=== PATIENT | female | born 1990 | race Caucasian/White ===

== ENCOUNTER 2020-11-28 13:53 | Outpatient (REF) | payer MEDICAID, SELFPAY ==
--- NOTE | ~2020-11-28 | US_ITS ---
EXAMINATION: US RETROPERITONEAL LIMITED (RENAL ONLY) CLINICAL INFORMATION: Frequency of micturition, kidney stones. COMPARISON: None TECHNIQUE: Real-time imaging of the kidneys. FINDINGS: RIGHT KIDNEY: 10.9 x 4.1 x 5.4 cm (SAG x AP x TRV). The kidney is normal in size, contour, and echogenicity. Renal cortical thickness is normal. No focal parenchymal lesions or hydronephrosis. There are small echogenic stones in the lower pole measuring 0.3 x 0.3 x 0.3 cm and mid pole measuring 0.2 x 0.3 x 0.2 cm. LEFT KIDNEY: 10.4 x 4.6 x 4.9 cm (SAG x AP x TRV). The kidney is normal in size, contour, and echogenicity. Renal cortical thickness is normal. No focal parenchymal lesions or hydronephrosis. There are several echogenic stones. The upper pole stone measures 0.3 x 0.3 x 0.3 cm. A mid pole stone measures 0.7 x 0.4 x 0.4 cm. A lower pole echogenic stone measures 0.2 x 0.2 x 0.2 cm. US/US renal BI IMPRESSION: Bilateral echogenic stones without caliectasis or hydronephrosis.
== END 2020-11-28 13:54 | disposition home or self-care (01) ==
LOC: HO.HMGCX 13:53
PROVIDERS: PCP Internal Medicine; Visit Provider Internal Medicine
DX: R35.0 Frequency of micturition (principal)
CPT/HCPCS: 76775

== ENCOUNTER 2022-10-28 17:50 | Outpatient (REF) | payer MEDICAID, SELFPAY ==
[2022-10-28 18:49] LABS: Influenza A PCR NEGATIVE (Negative); Influenza B PCR NEGATIVE (Negative); Resp Syncy Virus RNA Qual PCR NEGATIVE (Negative); SARS COV2 PCR INHOUSE NEGATIVE (Negative)
== END 2022-10-28 17:51 | disposition home or self-care (01) ==
LOC: HO.HHCLNP 17:50
PROVIDERS: Visit Provider Internal Medicine
DX: Z20.822 Contact with and (suspected) exposure to COVID-19 (principal); J06.9 Acute upper respiratory infection, unspecified; R39.9 Unspecified symptoms and signs involving the genitourinary system
CPT/HCPCS: 0241U; 87086; 87088; 87186

== ENCOUNTER 2022-11-21 14:07 | Outpatient (REF) | payer MEDICAID, SELFPAY ==
[2022-11-21 16:28] LABS: MANUAL DIFF FLAG NO
[2022-11-21 16:41] LABS: Basophils Absolute Auto 0.1 X10*3/uL (0.0-0.2); Basophils Percent Auto 0.9 % (0-2); Eosinophils Absolute Auto 0.1 X10*3/uL (0.0-0.4); Eosinophils Percent Auto 1.1 % (0-4); Hematocrit 37.7 % (37.0-47.0); Hemoglobin 12.5 g/dl (12.0-16.0); Imm Gran Abs Auto 0.01 X10*3/uL (0.00-0.03); Imm Gran Pct Auto 0.2 % (0.0-0.4); Lymphocytes Absolute Auto 1.6 X10*3/uL (1.2-4.9); Lymphocytes Percent Auto 28.1 % (20-40); Mean Corpuscular HGB Conc 33.2 g/dl (31.0-35.0); Mean Corpuscular Hemoglobin 30.6 pg (27.0-33.0); Mean Corpuscular Volume 92.4 fL (80.0-98.0); Mean Platelet Volume 11.2 fL (9.4-12.3); Monocytes Absolute Auto 0.5 X10*3/uL (0.1-1.2); Monocytes Percent Auto 8.1 % (2-11); Neutrophils Absolute Auto 3.4 x10*3/uL (2.0-8.3); Neutrophils Percent Auto 61.6 % (45-73); Platelet Count 239 X10*3/uL (160-400); Red Blood Count 4.08 X10*6/uL (4.20-5.50); Red Cell Distribution Width 12.2 % (11.0-16.0); White Blood Count 5.6 X10*3/uL (4.8-10.8)
[2022-11-21 16:52] LABS: Estimated Average Glucose 100 mg/dL; Hemoglobin A1c % 5.1 % (<6.0)
[2022-11-21 17:20] LABS: Anion Gap 13 (12-20); Blood Urea Nitrogen 10 mg/dL (9-16); Calcium 9.5 mg/dL (8.4-10.2); Carbon Dioxide 24 mmol/L (22-29); Chloride 106 mmol/L (96-108); Cholesterol 231 mg/dL (<200); Estimated Glomerular Filt Rate > 60; Glucose Random 84 mg/dL (60-115); HDL Cholesterol 34 mg/dL (>40); LDL Cholesterol Calculated 129 mg/dL (<100); Potassium 4.2 mmol/L (3.3-5.1); Sodium 139 mmol/L (135-145); Triglycerides 342 mg/dL (<150)
[2022-11-22 04:15] LABS: HIV AB/AG Nonreactive (Nonreactive); HIV Num 1 0.05 S/CO (0.00-0.99); ~HepC Num1 0.05 S/CO (0.00-0.79); ~Hepatitis C Antibody Nonreactive (Nonreactive)
== END 2022-11-21 14:08 | disposition home or self-care (01) ==
LOC: HO.HHCL 14:07
PROVIDERS: Visit Provider Internal Medicine
DX: Z00.00 Encounter for general adult medical examination without abnormal findings (principal)
CPT/HCPCS: 36415; 80048; 80061; 83036; 85025; 86803; 87389

== ENCOUNTER 2023-02-27 17:27 | Outpatient (REF) | payer MEDICAID, SELFPAY ==
[2023-02-27 17:49] LABS: Appearance Urine Cloudy; Color Urine Yellow; Glucose Urine UA Negative (Negative); Leukocyte Esterase Urine Negative (Negative); Nitrite Urine Positive (Negative); PH 6.5 (5.0-9.0); Specific Gravity - Urine 1.025 (1.005-1.025); UMIC TRIGGER UACC YES; Urine Blood Trace (Negative); Urine Ketones Negative (Negative); Urine Protein Negative (Neg-Trace)
[2023-02-27 17:52] LABS: Bacteria Urine 4+ (None Seen); Hyaline Casts Urine 0-2 /LPF (0-2); UACC Culture Trigger YES; WBC Urine 0-5 /HPF (0-5)
== END 2023-02-27 17:28 | disposition home or self-care (01) ==
LOC: HO.HHCLNP 17:27
PROVIDERS: Visit Provider Internal Medicine
DX: R39.9 Unspecified symptoms and signs involving the genitourinary system (principal)
CPT/HCPCS: 81001; 87086; 87088; 87186

== ENCOUNTER 2023-03-14 18:42 | Outpatient (REF) | payer MEDICAID, SELFPAY ==
[2023-03-15 06:03] LABS: CT PCR NOT DETECTED (Not Detect.); NG PCR NOT DETECTED (Not Detect.)
[2023-03-15 11:44] LABS: BV Int Neg Control Negative (Negative); BV Int Pos Control Positive (Positive)
== END 2023-03-14 18:43 | disposition home or self-care (01) ==
LOC: HO.HHCLNP 18:42
PROVIDERS: Visit Provider Emergency Medicine
DX: N30.00 Acute cystitis without hematuria (principal)
CPT/HCPCS: 0353U; 87086; 87088; 87186; 87480; 87510; 87660

== ENCOUNTER 2023-11-25 11:45 | Outpatient (REF) | payer MEDICAID, SELFPAY ==
[2023-11-25 13:31] LABS: MANUAL DIFF FLAG NO
[2023-11-25 13:37] LABS: Basophils Percent Auto 0.8 % (0-2); Eosinophils Absolute Auto 0.1 X10*3/uL (0.0-0.4); Hematocrit 39.1 % (37.0-47.0); Hemoglobin 13.1 g/dl (12.0-16.0); Imm Gran Abs Auto 0.01 X10*3/uL (0.00-0.03); Imm Gran Pct Auto 0.2 % (0.0-0.4); Lymphocytes Absolute Auto 1.8 X10*3/uL (1.2-4.9); Mean Corpuscular HGB Conc 33.5 g/dl (31.0-35.0); Mean Corpuscular Hemoglobin 30.5 pg (27.0-33.0); Mean Corpuscular Volume 91.1 fL (80.0-98.0); Monocytes Absolute Auto 0.3 X10*3/uL (0.1-1.2); Monocytes Percent Auto 6.7 % (2-11); Neutrophils Absolute Auto 2.7 x10*3/uL (2.0-8.3); Neutrophils Percent Auto 55.3 % (45-73); Platelet Count 259 X10*3/uL (160-400); Red Blood Count 4.29 X10*6/uL (4.20-5.50); Red Cell Distribution Width 12.4 % (11.0-16.0); White Blood Count 4.9 X10*3/uL (4.8-10.8)
[2023-11-25 14:01] LABS: Estimated Average Glucose 103 mg/dL; Hemoglobin A1C 113.4132 umol/L; Hemoglobin A1c % 5.2 % (<6.0); Total Hemoglobin (HGBA1C) 3378.7642 umol/L
[2023-11-25 14:32] LABS: Alanine Aminotransferase 52 U/L (0-31); Albumin Level 4.4 g/dL (3.5-5.0); Alkaline Phosphatase 79 U/L (39-117); Anion Gap 11 (12-20); Aspartate Amino Transferase 26 U/L (5-31); Bilirubin Total 0.4 mg/dL (0.0-1.0); Blood Urea Nitrogen 7 mg/dL (9-16); Calcium 9.1 mg/dL (8.4-10.2); Carbon Dioxide 25 mmol/L (22-29); Chloride 108 mmol/L (96-108); Cholesterol 249 mg/dL (<200); Estimated Glomerular Filt Rate > 60; Glucose Random 82 mg/dL (60-115); HDL Cholesterol 36 mg/dL (>40); LDL Cholesterol Calculated 162 mg/dL (<100); Potassium 4.4 mmol/L (3.3-5.1); Sodium 140 mmol/L (135-145); TSH reflex Free T4 1.06 uIU/mL (0.32-4.0); Total Protein 7.4 g/dL (6.5-8.0); Triglycerides 259 mg/dL (<150); Vitamin D 25-OH Total 18.2 ng/mL (>30)
[2023-11-26 08:30] LABS: HIV AB/AG Nonreactive (Nonreactive); HIV Num 1 0.04 S/CO (0.00-0.99); ~HepC Num1 0.07 S/CO (0.00-0.79); ~Hepatitis C Antibody Nonreactive (Nonreactive)
== END 2023-11-25 11:46 | disposition home or self-care (01) ==
LOC: HO.HHCL 11:45
PROVIDERS: Visit Provider Internal Medicine
DX: Z00.00 Encounter for general adult medical examination without abnormal findings (principal)
CPT/HCPCS: 36415; 80053; 80061; 82306; 83036; 84443; 85025; 86803; 87389

== ENCOUNTER 2024-08-17 12:20 | Outpatient (REF) | payer MEDICAID, SELFPAY | END 2024-08-17 12:21 | disposition home or self-care (01) | LOC: HO.HHCLNP 12:20 | PROVIDERS: Visit Provider Internal Medicine | DX: R39.9 Unspecified symptoms and signs involving the genitourinary system (principal) | CPT/HCPCS: 87086; 87088; 87186 ==

== ENCOUNTER 2024-11-25 09:11 | Outpatient (REF) | payer MEDICAID, SELFPAY ==
--- OUTSIDE RECORDS SUMMARY | 2024-11-25 10:19 | XMS_ITS | Clinical Summary ---
Author Organization [facility] Address [address] [place] [address] Phone Care Team Providers Care Driver Messenger Name Role Phone Carolann Aguirre MD Primary Care Provide r Social History Tobacco Use Types Packs/Day Years Used Date Smoking Tobacco: Never Assessed Comments Unknown Sex and Gender Information Value Date Recorded Sex Assigned at Not on file Legal Sex Female 11:45 PM EST Gender Identity Not on file Sexual Orientation Not on file Plan of Treatment Health Maintenance Due Date Last Done Comments Hepatitis B Vaccines (1 of 3 - 19+ 3-dose series) 04/13/2010 Cervical Cancer Screening: P ap Smear 04/13/2012 HPV Vaccines (1 - 3-dose SCD M series) 04/13/2018 Social Influencers of Health Screening 01/13/2022 Depression Screening 02/11/2024 COVID-19 Vaccine ( - 2023-2 5 season) 2024 Influenza Vaccine (#1) 2024 8, 11/03/2015 DTaP,Tdap,and Td Vaccines (3 - Td or Tdap) 08/20/2027 08/19/2017, 11/13/2015 Cholesterol Screening (Lipid Panel) 11/24/2028 11/25/2023 RSV Immunization Adult Patients (1 - 1-dose 75+ series) 04/13/2066 MMR Vaccines Aged Out 11/13/2015 No longer eligi ble based on patient's age to complete this topic HIV Screening Completed 11/25/2023 Hepatitis C Screening Completed 11/25/2023 HIB Vaccines Aged Out No longer eligi ble based on patient's age to complete this topic Hepatitis A Vaccines Aged Out No long er eligible based on patient's age to complete this topic IPV Vaccines Aged Out No longer eligi ble based on patient's age to complete this topic Meningococcal ACWY Vaccine Aged Out N o longer eligible based on patient's age to complete this topic Meningococcal B Vaccine Aged Out No l onger eligible based on patient's age to complete this topic Pneumococcal Vaccine: Pediatrics (0 to 5 Years) and At-Risk Patients (6 to 49 Years) Aged Out No longer eligible b ased on patient's age to complete this topic RSV Immunization Patients Under 20 months Aged Out No longer eligible b ased on patient's age to complete this topic Varicella Vaccines Aged Out No longer eligible based on patient's age to complete this topic Insurance MEDICAID - [place] Care Teams Driver Messenger Relationship Specialty Start Date End Date Carolann Aguirre MD [address] [place] [phone] PCP - General Internal Medicine 01/22/24
--- OUTSIDE RECORDS SUMMARY | 2024-11-25 10:19 | XMS_ITS | Encounter Summary ---
Author Organization [employer] Address [address] [place] [address] Care Team Providers Care Collection Supervisor Name Role Phone Carolann Aguirre MD Primary Care Provide r Encounter Details Date Type Department Care Team (Late st Contact Info) Description 03/19/2023 Orders Only [facility] [address] [place], [place] [phone] Manuel Shaikh MD [address] [place], [place] [phone] Social History Tobacco Use Types Packs/Day Years Used Date Smoking Tobacco: Former Cigarettes Smokeless Tobacco: Never Alcohol Use Standard Drinks/Week Comments Not Currently 0 (1 standard drink = 0.6 oz pur e alcohol) Depression Answer Date Recorded Patient Health Questionnaire-9 Score 0 11/21/2022 Housing Stability Answer Date Recorded What is your housing situation today? I have sajankimberly vital 11/25/[address] you li ve. Do you have problems with any of the following? None of the above 11/25/2022 Food Insecurity Answer Date Recorded Within the past 12 months, y ou worried that your food would run out before you got money to buy more: Never True 11/25/2022 Within the past 12 months,th e food you bought just didn't last and you didn't have enough money to get more: Never True Transportation Answer Date Recorded In the past 12 months, has l ack of transportation kept you from medical appts, meetings, work or from getting things needed for daily living? No 11/25/2022 Utilities Answer Date Recorded In the past 12 months, has t he electric, gas, oil or water company threatened to shut off services in your home? No 11/25/2022 Depression Answer Date Recorded Patient Health Questionnaire-2 Score 0 11/21/2022 Comments No Sex and Gender Information Value Date Recorded Sex Assigned at Female 12/10/2021 10:29 AM EDT Legal Sex Female 10:29 AM EDT Gender Identity Female 12/10/2021 10:29 AM EDT Sexual Orientation Straight 12/10/2021 10 :29 AM EDT documented as of this encounter Plan of Treatment Upcoming Encounters Date Type Department Care Team (Late st Contact Info) Description 11/30/2024 9:30 AM EDT Office Visit [facility] [address] [place] [phone] Carolann Aguirre MD [address] [place] [phone] 12/16/2024 10:00 AM EST Telemedicine [facility] [address] [place] [phone] Carolann Aguirre MD [address] [place] [phone] documented as of this encounter Visit Diagnoses Not on filedocumented in this encounter Additional Health Concerns Assessment Noted Time PHQ-9 Depression Total Score: 0 11/22/19 23 1:32 PM EDT documented as of this encounter Care Teams Collection Supervisor Relationship Specialty Start Date End Date Carolann Aguirre MD [address] [place] [phone] PCP - General Family Medicine 10/29/17 documented as of this encounter
--- OUTSIDE RECORDS SUMMARY | 2024-11-25 10:19 | XMS_ITS | Encounter Summary ---
Author Organization [employer] Address [address] [place] [address] 7t [place] [address] Care Team Providers Care Windows Application Administrator Name Role Phone Carolann Aguirre MD Primary Care Provide r Encounter Details Date Type Department Care Team ([facility] Contact Info) Description 09/11/[address] [facility] [address] [place] [phone] Carolann Aguirre MD [address] [place] [phone] Social History Tobacco Use Types Packs/Day Years Used Date Smoking Tobacco: Former Cigarettes Smokeless Tobacco: Never Alcohol Use Standard Drinks/Week Comments Not Currently 0 (1 standard drink = 0.6 oz pur e alcohol) Comments No Sex and Gender Information Value Date Recorded Sex Assigned at Female 12/10/2021 10:29 AM EDT Legal Sex Female 10:29 AM EDT Gender Identity Female 12/10/2021 10:29 AM EDT Sexual Orientation Straight 12/10/2021 10 :29 AM EDT documented as of this encounter Plan of Treatment Upcoming Encounters Date Type Department Care Team (Late Contact Info) Description 11/30/2024 9:30 AM EDT Office Visit [facility] [address] [place] [address] [phone] Carolann Aguirre MD [address] [place] [phone] 12/16/2024 10:[address] [facility] [address] [place] [address] [phone] Carolann Aguirre MD [address] [place] [phone] documented as of this encounter Visit Diagnoses Not on filedocumented in this encounter Care Teams Windows Application Administrator Relationship Specialty Start Date End Date Carolann Aguirre MD [address] [place], [place] [phone] PCP - General Family Medicine 10/29/17 documented as of this encounter
--- OUTSIDE RECORDS SUMMARY | 2024-11-25 10:19 | XMS_ITS | Encounter Summary ---
Author Organization [employer] Address [address] [place] [address] 7t [place] [address] Care Team Providers Care Hydrate Thickener Operator Name Role Phone Carolann Aguirre MD Primary Care Provide r Reason for Visit * Reason Onset Date Comments Nurse Triage 09/04/2022 Encounter Details Date Type Department Care Team ([facility] st Contact Info) Description 09/04/2022 Telephone [facility] [address] [place], [place] [phone] Carolann Aguirre MD [address] [place] [phone] Nurse Triage Social History Tobacco Use Types Packs/Day Years [...] AM EDT documented as of this encounter Miscellaneous Notes * Telephone Encounter - Shea Sykes RN - 09/04/2022 2:28 PM EDT Triage call with [place] [employer] [id number] Pt reports periods are coming later each month. Last period was 07/22/22. Pt has not had period yet this month of August. Pt reports increased stress in daily life. Pt reports right sided pain with sex a few nights ago but, the pain was momentary and was not in the pelvic area but, in upper right of abdomen. Pt has had tubal ligation in the past. Pt reports the pain is in the upper right rib area. Pt doesn't have pain at this time. Pt reports missed apt for Pap smear to be done. Apt with ROSEMARY Hobbs 09/19 @ 930am for pap smear to be done. Pt is advised that if pain in right rib area becomes increases,worsens or becomes constant to seek evaluation in the ED and Pt agrees. Protocol Used: Menstrual Period - Missed or Late (Adult) Protocol-Based Disposition: Home Care Positive Triage Question: * Recent stress (e.g., new school/job/home/marriage, relationship problems) * All higher-acuity triage questions were negative Care Advice Discussed: * Test, When in Doubt * Menstrual Periods and Stress * Reasons To Call Back - Miss 2 periods or more - You need help coping with stress - New symptoms suggest (e.g., morning sickness, breast tenderness/swelling) - Positive test - You have any other serious symptoms * Telephone Encounter - Stacy Taylor - 09/04/2022 1:40 PM EDT Symptom: Menstrual Periods Absent or Missed Outcome: Schedule an appointment to be seen within 24 hours Reason: pt is also spotting The caller accepted this outcome Please contact pt at [phone] (Uzbek) documented in this encounter Plan of Treatment Upcoming Encounters Date Type Department Care Team (Late st Contact Info) Description 11/30/2024 9:30 AM EDT Office Visit [facility] [address] [place] [phone] Carolann Aguirre MD [address] [place] [phone] 12/16/2024 10:00 AM EST Telemedicine [facility] [address] [place] [phone] Carolann Aguirre MD [address] [place] [phone] documented as of this encounter Visit Diagnoses Not on filedocumented in this encounter Care Teams Hydrate Thickener Operator Relationship Specialty Start Date End Date Carolann Aguirre MD [address] [place] [phone] PCP - General Family Medicine 10/29/17 documented as of this encounter
--- OUTSIDE RECORDS SUMMARY | 2024-11-25 10:19 | XMS_ITS | Encounter Summary ---
Author Organization [employer] Address [address] [facility] 7t [place] [address] Care Team Providers Care Retail Warehouse Associate Name Role Phone Carolann Aguirre MD Primary Care Provide r Encounter Details Date Type Department Care Team ([facility] st Contact Info) Description 12/31/2022 Telephone [facility] [address] [place], [place] [phone] Carolann Aguirre MD [address] [place], [place] [phone] Social History Tobacco Use Types Packs/Day Years [...] the past 12 months, has t he [employer], gas, oil or water [employer] threatened to shut off services in your [...] encounter Miscellaneous Notes * Telephone Encounter - Stacy Brandon - 12/31/2022 2:46 PM EST Tc from pt calling to report claim #[id number]. Pt states he received a call but not sure if it had to do with the claim. Any questions, contact pt at [phone] documented in this encounter Plan of Treatment Upcoming Encounters Date Type Department Care Team (Late st Contact Info) Description 11/30/2024 9:30 AM EDT Office Visit [facility] [address] [place] [phone] Carolann Aguirre MD [address] [place] [phone] 12/16/2024 10:00 AM EST Telemedicine [address] [phone] Carolann Aguirre MD [address] [place] [phone] documented as of this encounter Visit Diagnoses Not on filedocumented in this encounter Additional Health Concerns Assessment Noted Time PHQ-9 Depression Total Score: 0 11/22/19 23 1:32 PM EDT documented as of this encounter Care Teams Retail Warehouse Associate Relationship Specialty Start Date End Date Carolann Aguirre MD [address] [place] [phone] PCP - General Family Medicine 10/29/17 documented as of this encounter
--- OUTSIDE RECORDS SUMMARY | 2024-11-25 10:19 | XMS_ITS | Encounter Summary ---
Author Organization [employer] Address [address] [facility] 7t [place] [address] Care Team Providers Care Theatre Instructor Name Role Phone Carolann Aguirre MD Primary Care Provide r Reason for Visit * Reason Onset Date Comments Nurse Triage 10/09/2022 Encounter Details Date Type Department Care Team ([facility] st Contact Info) Description 10/09/2022 Telephone [facility] [address] [place], [place] [phone] Carolann Aguirre MD [address] [place] [address] Nurse Triage Social History Tobacco Use Types [...] Telephone Encounter - Shea Sykes RN - 10/09/2022 10:43 AM EDT Triage call with [place] [employer] Philosophy Professor [place] [id number] Pt reports fever since Friday10/07/22, chills at times, fever is tactile not measured by thermometer. Pt reports diarrhea since yesterday x1 today, and headache. Home Covid test was done 10/08/22 and was neg. Pt denies body aches, vomiting, cough, sore throat, earache, runny nose. Pt is not drinkingadequate liquids advised to drink 6-8 glasses of liquids daily. Pt reports tylenol is effective to relieve headache. Pt is requesting a note for work. Pt is advised to come to [facility] to be seen by provider. Pt agrees with disposition and home care advised. Protocol Used: Fever (Adult) Protocol-Based Disposition: See in Office or Video Visit Today or Tomorrow Video visit not offered Positive Triage Question: * Fever present > 3 days (72 hours) * All higher-acuity triage questions were negative Care Advice Discussed: * Reassurance and Education - Fever * For All Fevers * Fever Medicines * Lukewarm Shower for Reducing Fever * Expected Course * Contagiousness * Reasons To Call Back - Fever lasts longer than 3 days (72 hours) - You become worse * Telephone Encounter - Stacy Taylor - 10/09/2022 10:21 AM EDT Symptoms: Fever, Abdominal Pain - Female - Not , Headache Outcome: Talk to a nurse or provider within 15 minutes Reason: Severe pain now The caller accepted this outcome Please contact pt at [phone] (Kyrgyz) documented in this encounter Plan of Treatment Upcoming Encounters Date Type Department Care Team ([facility] st Contact Info) Description 11/30/2024 9:30 AM EDT Office Visit [facility] [address] [place] [phone] Carolann Aguirre MD [address] [place] [phone] 12/16/2024 10:00 AM EST Telemedicine [facility] [address] [place] [phone] Carolann Aguirre MD [address] [place] [phone] documented as of this encounter Visit Diagnoses Not on filedocumented in this encounter Care Teams Theatre Instructor Relationship Specialty Start Date End Date Carolann Aguirre MD [address] [place] [address] PCP - General Family Medicine 10/29/17 documented as of this encounter
--- OUTSIDE RECORDS SUMMARY | 2024-11-25 10:19 | XMS_ITS | Encounter Summary ---
Author Organization [employer] Address [address] [facility] 7t [place] [address] Care Team Providers Care Studio Manager Name Role Phone Carolann Aguirre MD Primary Care Provide r Reason for Visit * Reason Onset Date Comments Nurse Triage 11/10/2024 Encounter Details Date Type Department Care Team ([facility] st Contact Info) Description 11/10/2024 Telephone [facility] [address] [place], [place] [phone] Carolann Aguirre MD [address] [place] [address] Nurse Triage Social History Tobacco Use Types Packs/Day Years Used Date Smoking Tobacco: Former Cigarettes Passive Smoke Exposure: Past Smokeless Tobacco: Never Comments:Vape sometimes Alcohol Use Standard Drinks/Week Comments Never 0 (1 standard drink = 0.6 oz pur e alcohol) Alcohol Answer Date Recorded Frequency of Alcohol Consumption Not on file 08/29/2023 Average Number of Drinks Not on file 024 Frequency of Binge Drinking Not on file 08/10 Score 0 08/29/2023 Depression Answer Date Recorded Patient Health Questionnaire-9 Score 0 11/25/2023 Patient Health Questionnaire-9 Score 0 11/25/2023 Last PHQ-9: Questionnaire Data Not on file 1 Housing Stability Answer Date Recorded What is your housing situation today? I have sajan vital 03/28/[address] you li ve. Do you have problems with any of the following? Mold 03/28/2023 Food Insecurity Answer Date Recorded Within the [...] Date Recorded Patient Health Questionnaire-2 Score 0 11/25/2023 Comments No Sex and Gender Information Value Date Recorded Sex Assigned at Female 12/10/2021 10:29 AM EDT Legal Sex Female 10:29 AM EDT Gender Identity Female 12/10/2021 10:29 AM EDT Sexual Orientation Straight 12/10/2021 10 :29 AM EDT documented as of this encounter Miscellaneous Notes * Telephone Encounter - Shea Sykes RN - 11/10/2024 9:51 AM EDT Triage call with [facility] [place] [id number], Stacey. Pt reports for the last 2 months some episodes of rapid heart rate. Pt reports first episode was while driving, heart jumped and began to beat very fast, sx of light headedness occurred and a senseof passing out with vision affected. Pt reports this occurs on and off since then. Episodes only last a few seconds , some sx are slight chest pain on occasion, sob on occasion and dizziness/lighthe adedness. Pt reports some jaw pain and radiation to behind ear and then to shoulder on left side which occurred once. Pt is not having these sx at time of call. Pt denies cardiac hx, , or ankle edema. Pt does have hx of anxiety/panic attacks last episode being a year or so ago. ASK apt with PCP 11/16/24 @ 1115am. Pt agrees with this disposition. Pt is advised if this occurs with worseningsymptoms prior to apt go to closest ED for evaluation and Pt agrees. Insurance is verified as active. Protocol Used: Heart Rate and Heartbeat Questions (Adult) Protocol-Based Disposition: See in Office or Video Visit within 2 Weeks Positive Triage Question: * Palpitations are a chronic symptom (recurrent or ongoing AND present > 4 weeks) * All higher-acuity triage questions were negative Care Advice Discussed: * Reassurance and Education - Palpitations and Extra Heartbeats * Healthy Living Tips for People With Palpitations * Avoid Caffeine * Expected Course * Reasons To Call Back - Chest pain, lightheadedness or difficulty breathing occurs - Heart beating over 140 beats / minute - More than 3 extra or skipped beats / minute - You become worse * Telephone Encounter - Flip Jg - 11/10/2024 9:05 AM EDT Symptoms: Vision Loss or Change, Heartbeat Symptoms (Fast, Slow, or Irregular) Outcome: Transfer to a nurse or provider NOW! Reason: Chest pain Please contact pt at [phone]. (Pashto Speaker) documented in this encounter Plan of Treatment Upcoming Encounters Date Type Department Care Team (Late st Contact Info) Description 11/30/2024 9:30 AM EDT Office Visit [facility] [address] [place] [phone] Carolann Aguirre MD [address] [place] [phone] 12/16/2024 10:00 AM EST Telemedicine [facility] [address] [place] [phone] Carolann Aguirre MD [address] [place] [phone] documented as of this encounter Visit Diagnoses Not on filedocumented in this encounter Additional Health Concerns Assessment Noted Time PHQ-9 Depression Total Score: 0 11/25/19 24 9:31 AM EDT documented as of this encounter Care Teams Studio Manager Relationship Specialty Start Date End Date Carolann Aguirre MD [address] [place] [phone] PCP - General Family Medicine 10/29/17 documented as of this encounter
--- OUTSIDE RECORDS SUMMARY | 2024-11-25 10:19 | XMS_ITS | Encounter Summary ---
Author Organization [employer] Address [address] [place] [address] Care Team Providers Care Clip Loading Machine Adjuster Name Role Phone Carolann Aguirre MD Primary Care Provide r Reason for Visit * Reason Comments Pre-visit Planning SDOH negative. Tobac co screening negative. Encounter Details Date Type Department Care Team ([facility] Contact Info) Description 11/23/2024 Patient Outreach [facility] CH[facility] MED & PEDS [address] [place] [address] Carolann Aguirre MD [address] [place] [address] Pre-visit Planning (SDOH negative. Tobacco screening negative. ) Social History Tobacco Use Types Packs/Day Years [...] Answer Date Recorded Patient Health Questionnaire-9 Score 6 11/16/2024 Patient Health Questionnaire-9 Score 6 11/16/2024 Last PHQ-9: Questionnaire Data Not on file 1 Housing Stability Answer Date Recorded What is your housing situation today? I have sajan vital 11/23/[address] you li ve. Do you have problems with any of the following? None of the above 11/23/2024 Food Insecurity Answer Date Recorded Within the past 12 months, y ou worried that your food would run out before you got money to buy more: Never True 11/23/2024 Within the past 12 months,th e food you bought just didn't last and you didn't have enough money to get more: Never True Transportation Answer Date Recorded In the past 12 months, has l ack of transportation kept you from medical appts, meetings, work or from getting things needed for daily living? No 11/23/2024 Utilities Answer Date Recorded In the past 12 months, has t he electric, gas, oil or water company threatened to shut off services in your home? No 11/23/2024 Depression Answer Date Recorded Patient Health Questionnaire-2 Score 1 11/16/2024 Internet Access Answer Date Recorded Internet Access Q1 Yes 11/23/2024 Internet Access Q2 Not on file 11/23/2024 Comments No Sex and Gender Information Value Date Recorded Sex Assigned at Female 12/10/2021 10:29 AM EDT Legal Sex Female 10:29 AM EDT Gender Identity Female 12/10/2021 10:29 AM EDT Sexual Orientation Straight 12/10/2021 10 :29 AM EDT documented as of this encounter Progress Notes * Winter Berry - 11/23/2024 2:02 PM EDT MARIANN Ball placed successful outbound call to patient for pre-visit planning. Patient name and confirmed. Patient confirms appt date and time, and has transportation arrangements. Biggest concern for appointment at this time is no concerns. Appropriate screenings completed in anticipation ofappointment. documented in this encounter Plan of Treatment Upcoming Encounters Date Type Department Care Team (Late st Contact Info) Description 11/30/2024 9:30 AM EDT Office Visit [facility] MEDICINE [address] [place] [phone] Carolann Aguirre MD [address] [place] [address] 12/16/2024 10:00 AM EST Telemedicine [facility] MEDICINE [address] [place] [phone] Carolann Aguirre MD [address] [place] [address] documented as of this encounter Visit Diagnoses Not on filedocumented in this encounter Additional Health Concerns Assessment Noted Time PHQ-9 Depression Total Score: 6 11/17/19 25 11:49 AM EDT documented as of this encounter Care Teams Clip Loading Machine Adjuster Relationship Specialty Start Date End Date Carolann Aguirre MD [address] [place] [address] PCP - General Family Medicine 10/29/17 documented as of this encounter
--- OUTSIDE RECORDS SUMMARY | 2024-11-25 10:19 | XMS_ITS | Encounter Summary ---
Author Organization [employer] Address [address] [place] [address] 7t [place] [address] Care Team Providers Care Supervisor Display Fabrication Name Role Phone Carolann Aguirre MD Primary Care Provide r Encounter Details Date Type Department Care Team (Latest Contact Info) Description 12/25/2020 Abstract [facility] CONVERSIONS Dental, Provider, DDS Social History Tobacco Use Types Packs/Day Years [...] Description 11/30/2024 9:30 AM EDT Office Visit [facility] MEDICINE [address] [place] [phone] Carolann Aguirre MD [address] [place] [phone] 12/16/2024 10:00 AM EST Telemedicine [facility] MEDICINE [address] [place] [phone] Carolann Aguirre MD [address] [place] [address] documented as of this encounter Visit Diagnoses Not on filedocumented in this encounter Care Teams Supervisor Display Fabrication Relationship Specialty Start Date End Date Carolann Aguirre MD [address] [place] [address] PCP - General Family Medicine 10/29/17 documented as of this encounter
--- OUTSIDE RECORDS SUMMARY | 2024-11-25 10:19 | XMS_ITS | Encounter Summary ---
Author Organization [employer] Address [address] [place] [address] 7t [place] [address] Care Team Providers Care Absorption Plant Operator Helper Name Role Phone Carolann Aguirre MD Primary Care Provide r Encounter Details Date Type Department Care Team (Late Contact Info) Description 04/04/2022 Abstract [facility] MEDICINE [address] [place] [phone] Provider, MD Flor Social History Tobacco Use Types Packs/Day Years Used Date Smoking Tobacco: Never Assessed Comments No Sex and Gender Information Value Date Recorded Sex Assigned at Female 12/10/2021 10:29 AM EDT Legal Sex Female 10:29 AM EDT Gender Identity Female 12/10/2021 10:29 AM EDT Sexual Orientation Straight 12/10/2021 10 :29 AM EDT COVID-19 Exposure Response Date Recorded In the last 10 days, have yo u been in contact with someone who was confirmed or suspected to have Coronavirus/COVID-19? No / Unsure 03/28/2022 11:30 AM EST documented as of this encounter Plan of Treatment Upcoming Encounters Date Type Department Care Team (Late st Contact Info) Description 11/30/2024 9:30 AM EDT Office Visit [facility] MEDICINE [address] [place] [phone] Carolann Aguirre MD [address] [place] [address] 12/16/2024 10:00 AM EST Telemedicine [address] [phone] Carolann Aguirre MD [address] [place] [address] documented as of this encounter Procedures Procedure Name Priority Date/Time Associated Diagnosis Comments PAP/HPV Routine 03/28/2022 12:00 AM EST documented in this encounter Results * Pap Smear (03/28/2022 12:00 AM EST) us Historical Provider HEALTH MAINTENANCE Final Result documented in this encounter Visit Diagnoses Not on filedocumented in this encounter Care Teams Absorption Plant Operator Helper Relationship Specialty Start Date End Date Carolann Aguirre MD [address] [place] [address] PCP - General Family Medicine 10/29/17 documented as of this encounter
--- OUTSIDE RECORDS SUMMARY | 2024-11-25 10:19 | XMS_ITS | Encounter Summary ---
Author Organization [employer] Address [address] [facility] [address] [place] [address] Care Team Providers Care Loading Supervisor Name Role Phone Carolann Aguirre MD Primary Care Provide r Reason for Visit * Reason Onset Date Comments Referral 09/28/2024 Encounter Details Date Type Department Care Team ([facility] st Contact Info) Description 09/28/2024 Telephone [facility] MEDICINE [address] [place], [place] [phone] Carolann Aguirre MD [address] [place] [address] Referral Social History Tobacco Use Types Packs/Day Years [...] encounter Miscellaneous Notes * Telephone Encounter - Antonietta Laureano RN - 09/28/2024 2:35 PM EDT TC placed to [facility] Urology in regards to message below from pt that they need a new referral placed by PCP. Per the receptionist doctor's office at [facility], the pt does have a confirmed appt on 09/29 and is established with them but still requires an insurance referral per [facility]. The pt would need this referral placed by 2 PM on 09/29 in order to be seen. The PCP can go to the [facility] website to initiate this referral and can often times expedite the process. DATE: 09/29/24 TIME: 2:15 Address: [address], [place] [address] Facility Name: [facility] Urology Type of Specialist: Urologist Pt states they need referral by today if possible, insurance writer did inform pt of protocol. If any questions you can contact pt at [phone]. (Wolof Speaker) * Telephone Encounter - Flip Gregorio - 09/28/2024 12:50 PM EDT TC from pt requesting new referral : DATE: 09/29/24 TIME: 2:15 Address: [address], [place] [address] Facility Name: [facility] Type of Specialist: Urologist Pt states they need referral by today if possible, insurance writer did inform pt of protocol. If any questions you can contact pt at [phone]. (Wolof Speaker) documented in this encounter Plan of Treatment Upcoming Encounters Date Type Department Care Team (Late st Contact Info) Description 11/30/2024 9:30 AM EDT Office Visit [facility] MEDICINE [address] [place] [phone] Carolann Aguirre MD [address] [place] [address] 12/16/2024 10:00 AM EST Telemedicine [facility] MEDICINE [address] [place] [address] Carolann Aguirre MD [address] [place] [address] documented as of this encounter Visit Diagnoses Not on filedocumented in this encounter Additional Health Concerns Assessment Noted Time PHQ-9 Depression Total Score: 0 11/25/19 24 9:31 AM EDT documented as of this encounter Care Teams Loading Supervisor Relationship Specialty Start Date End Date Carolann Aguirre MD [address] [place] [phone] PCP - General Family Medicine 10/29/17 documented as of this encounter
--- OUTSIDE RECORDS SUMMARY | 2024-11-25 10:19 | XMS_ITS | Encounter Summary ---
Author Organization [employer] Address [address] [place] [address] Care Team Providers Care Mud Car Worker Name Role Phone Carolann Aguirre MD Primary Care Provide r Encounter Details Date Type Department Care Team ([facility] st Contact Info) Description 09/30/2024 Orders Only [facility] CHC MED & PEDS [address] [place] [address] ProviderFlor MD Social History Tobacco Use Types Packs/Day Years [...] 11/30/2024 9:30 AM EDT Office Visit [facility] MEDICINE [address] [place] [address] Carolann Aguirre MD [address] [place] [address] 12/16/2024 10:00 AM EST Telemedicine [facility] MEDICINE [address] [place] [address] Carolann Aguirre MD [address] [place] [phone] documented as of this encounter Procedures Procedure Name Priority Date/Time Associated Diagnosis Comments COLPOSCOPY Routine 01/13/2023 9:42 AM EST HM PAP/HPV Routine 01/13/2023 9:40 AM EST documented in this encounter Results * Colposcopy (01/13/2023 9:42 AM EST) Historical Provider IN CLINIC/BEDSIDE ORDERAB LES Final Result * HM PAP/HPV (01/13/2023 9:40 AM EST) us Historical Provider HEALTH MAINTENANCE Final Result documented in this encounter Visit Diagnoses Not on filedocumented in this encounter Additional Health Concerns Assessment Noted Time PHQ-9 Depression Total Score: 0 11/25/19 24 9:31 AM EDT documented as of this encounter Care Teams Mud Car Worker Relationship Specialty Start Date End Date Carolann Aguirre MD [address] [place] [address] PCP - General Family Medicine 10/29/17 documented as of this encounter
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
== END 2024-11-25 09:12 | disposition home or self-care (01) ==
LOC: HO.HHCL 09:11
PROVIDERS: PCP Internal Medicine; Visit Provider Internal Medicine
DX: Z13.89 Encounter for screening for other disorder (principal)

== ENCOUNTER 2024-11-26 10:13 | Outpatient (REF) | payer MEDICAID, SELFPAY ==
[2024-11-26 11:26] LABS: MANUAL DIFF FLAG NO
[2024-11-26 11:39] LABS: Hematocrit 38.2 % (37.0-47.0); Hemoglobin 13.1 g/dl (12.0-16.0); Imm Gran Abs Auto 0.00 X10*3/uL (0.00-0.03); Imm Gran Pct Auto 0.0 % (0.0-0.4); Lymphocytes Absolute Auto 2.1 X10*3/uL (1.2-4.9); Mean Corpuscular HGB Conc 34.3 g/dl (31.0-35.0); Mean Corpuscular Hemoglobin 30.8 pg (27.0-33.0); Mean Corpuscular Volume 89.9 fL (80.0-98.0); NRBC Abs Auto 0.000 X10*3/uL (0.0-0.012); NRBC Pct Auto 0.0 /100WBC (0.0-0.2); Platelet Count 257 X10*3/uL (160-400); Red Blood Count 4.25 X10*6/uL (4.20-5.50); White Blood Count 5.2 X10*3/uL (4.8-10.8)
--- OUTSIDE RECORDS SUMMARY | 2024-11-26 12:02 | XMS_ITS | Encounter Summary ---
Author Organization [employer] Address [address] [place] [address] 7t [place] [address] Care Team Providers Care Chimney Builder Brick Name Role Phone Carolann Aguirre MD Primary Care Provide r Encounter Details Date Type Department Care Team (Late Contact Info) Description 04/04/2022 Abstract [facility] [address] [place] [phone] Provider, MD Flor Social History Tobacco Use [...] Description 11/30/2024 9:30 AM EDT Office Visit [facility] [address] [place] [phone] Carolann Aguirre MD [address] [place] [phone] 12/16/2024 10:00 AM EST Telemedicine [address] [phone] Carolann Aguirre MD [address] [place] [phone] documented as of this encounter Procedures Procedure Name Priority Date/Time Associated Diagnosis Comments PAP/HPV Routine 03/28/2022 12:00 AM EST documented in this encounter Results * Pap Smear (03/28/2022 12:00 AM EST) us Historical Provider HEALTH MAINTENANCE Final Result documented in this encounter Visit Diagnoses Not on filedocumented in this encounter Care Teams Chimney Builder Brick Relationship Specialty Start Date End Date Carolann Aguirre MD [address] [place] [address] PCP - General Family Medicine 10/29/17 documented as of this encounter
--- OUTSIDE RECORDS SUMMARY | 2024-11-26 12:02 | XMS_ITS | Clinical Summary ---
Author Organization [facility] Address [address] [address] Phone Care Team Providers Care Light Out Examiner Name Role Phone Unavailable Primary Care Provider Unavailabl e Social History Tobacco Use Types Packs/Day Years Used Date Smoking Tobacco: Never Assessed Comments Unknown Sex and Gender Information Value Date Recorded Sex Assigned at Not on file Legal Sex Female 2:41 PM EDT Gender Identity Not on file Sexual Orientation Not on file Plan of Treatment Upcoming Encounters Date Type Department Care Team (Late st Contact Info) Description 12/02/2024 3:15 PM EDT Office Visit [facility] [address] [phone] Enmanuel Ling MD [address] [phone] Health Maintenance Due Date Last Done Comments Hepatitis B Vaccine (1 of 3 - 19+ 3-dose series) 04/13 Pneumococcal Vaccine: Peds ( 0 to 5 Years) and At-Risk Patients (6 to 49 Years) (1 of 2 - PCV) 04/13/2010 Influenza Vaccine (#1) 2024 11/03/2015 Insurance Medicaid MD
--- OUTSIDE RECORDS SUMMARY | 2024-11-26 12:02 | XMS_ITS | Encounter Summary ---
Author Organization [employer] Address [address] [place] [address] [address] [place] [address] Care Team Providers Care Hospice Clinical Manager Name Role Phone Carolann Aguirre MD Primary Care Provide r Reason for Visit * Reason Onset Date Comments Nurse Triage 09/04/2022 Encounter Details Date Type Department Care Team ([facility] st Contact Info) Description 09/04/2022 Telephone [facility] [address], [place] [phone] Carolann Aguirre MD [address] [place] [address] Nurse Triage Social History Tobacco Use Types [...] 09/04/2022 2:28 PM EDT Triage call with [place] Manager [place] ID [id number] Pt reports periods are coming later each [...] accepted this outcome Please contact pt at [phone] (Swedish) documented in this encounter Plan of Treatment Upcoming Encounters Date Type Department Care Team (Late st Contact Info) Description 11/30/2024 9:30 AM EDT Office Visit [facility] [address] [place] [phone] Carolann Aguirre MD [address] [place] [phone] 12/16/2024 10:00 AM EST Telemedicine [facility] [address] [place] [phone] Carolann Aguirre MD [address] [place] [phone] documented as of this encounter Visit Diagnoses Not on filedocumented in this encounter Care Teams Hospice Clinical Manager Relationship Specialty Start Date End Date Carolann Aguirre MD [address] [place] [address] PCP - General Family Medicine 10/29/17 documented as of this encounter
--- OUTSIDE RECORDS SUMMARY | 2024-11-26 12:02 | XMS_ITS | Encounter Summary ---
Author Organization [employer] Address [address] [place] [address] 7t [place] [address] Care Team Providers Care Ginseng Farmer Name Role Phone Carolann Aguirre MD Primary Care Provide r Encounter Details Date Type Department Care Team ([facility] Contact Info) Description 09/11/2022 Abstract [facility] [address] [place] [phone] Carolann Aguirre MD [address] [place] [phone] Social History Tobacco Use Types Packs/Day Years [...] Description 11/30/2024 9:30 AM EDT Office Visit [facility] [address] [place] [address] [phone] Carolann Aguirre MD [address] [place] [phone] 12/16/2024 10:00 AM EST Telemedicine [facility] [address] [place] [address] [phone] Carolann Aguirre MD [address] [place] [address] documented as of this encounter Visit Diagnoses Not on filedocumented in this encounter Care Teams Ginseng Farmer Relationship Specialty Start Date End Date Carolann Aguirre MD [address] [place], [place] [phone] PCP - General Family Medicine 10/29/17 documented as of this encounter
--- OUTSIDE RECORDS SUMMARY | 2024-11-26 12:03 | XMS_ITS | Clinical Summary ---
Author Organization [facility] Address [address] [place] [address] Phone Care Team Providers Care Part Time Name Role Phone Carolann Aguirre MD Primary [...] topic Insurance MEDICAID - [place] Care Teams Part Time Relationship Specialty Start Date End Date Carolann Aguirre MD [address] [place] [phone] PCP - General Internal Medicine 01/22/24
--- OUTSIDE RECORDS SUMMARY | 2024-11-26 12:03 | XMS_ITS | Encounter Summary ---
Author Organization [employer] Address [address] [facility] [address] [place] [address] Care Team Providers Care Continuous Yarn Dyeing Machine Operator Name Role Phone Carolann Aguirre MD Primary Care Provide r Reason for Visit * Reason Comments Pre-visit Planning SDOH negative. Tobac co screening negative. Encounter Details Date Type Department Care Team ([facility] Contact Info) Description 11/23/2024 Patient Outreach [facility] [address] [place] [address] Carolann Aguirre MD [address] [place] [address] Pre-visit Planning (SDOH negative. Tobacco screening negative. [...] Description 11/30/2024 9:30 AM EDT Office Visit [facility] [address] [place] [phone] Carolann Aguirre MD [address] [place] [address] 12/16/2024 10:00 AM EST Telemedicine [facility] [address] [place] [phone] Carolann Aguirre MD [address] [place] [address] documented as of this encounter Visit Diagnoses Not on filedocumented in this encounter Additional Health Concerns Assessment Noted Time PHQ-9 Depression Total Score: 6 11/17/19 25 11:49 AM EDT documented as of this encounter Care Teams Continuous Yarn Dyeing Machine Operator Relationship Specialty Start Date End Date Carolann Aguirre MD [address] [place] [address] PCP - General Family Medicine 10/29/17 documented as of this encounter
--- OUTSIDE RECORDS SUMMARY | 2024-11-26 12:03 | XMS_ITS | Encounter Summary ---
Author Organization [employer] Address 75 [facility] 7t [place] [address] Care Team Providers Care Electronics Department Manager Name Role Phone Carolann Aguirre MD Primary Care Provide r Encounter Details Date Type Department Care Team ([facility] st Contact Info) Description 12/31/2022 Telephone [facility] MEDICINE [address] [place], [place] [phone] Carolann Aguirre MD [address] [place], [place] [phone] Social History Tobacco Use Types Packs/Day Years [...] the past 12 months, has t he [employer], gas, oil or water [employer] threatened to shut off services in your [...] Tc from pt calling to report claim #[id number]. Pt states he received a call but not sure if it had to do with the claim. Any questions, contact pt at [phone] documented in this encounter Plan of Treatment Upcoming Encounters Date Type Department Care Team (Late st Contact Info) Description 11/30/2024 9:30 AM EDT Office Visit [facility] MEDICINE [address] [place] [address] Carolann Aguirre MD [address] [place] [address] 12/16/2024 10:00 AM EST Telemedicine [address] [address] Carolann Aguirre MD [address] [place] [phone] documented as of this encounter Visit Diagnoses Not on filedocumented in this encounter Additional Health Concerns Assessment Noted Time PHQ-9 Depression Total Score: 0 11/22/19 23 1:32 PM EDT documented as of this encounter Care Teams Electronics Department Manager Relationship Specialty Start Date End Date Carolann Aguirre MD [address] [place] [address] PCP - General Family Medicine 10/29/17 documented as of this encounter
--- OUTSIDE RECORDS SUMMARY | 2024-11-26 12:03 | XMS_ITS | Encounter Summary ---
Author Organization [employer] Address 75 [facility] 7t [place] [address] Care Team Providers Care Quantitative Associate Name Role Phone Carolann Aguirre MD Primary Care Provide r Reason for Visit * Reason Onset Date Comments Nurse Triage 11/10/2024 Encounter Details Date Type Department Care Team ([facility] st Contact Info) Description 11/10/2024 Telephone [facility] MEDICINE [address] [place], [place] [phone] Carolann Aguirre MD 230 [place] [address] Nurse Triage Social History Tobacco Use Types [...] 11/10/2024 9:51 AM EDT Triage [place] [id number], Stacey. Pt reports for the last 2 [...] Reason: Chest pain Please contact pt at [phone]. (Syriac Speaker) documented in this encounter Plan of Treatment Upcoming Encounters Date Type Department Care Team (Late st Contact Info) Description 11/30/2024 9:30 AM EDT Office Visit [facility] MEDICINE [address] [place] [phone] Carolann Aguirre MD [address] [place] [address] 12/16/2024 10:00 AM EST Telemedicine [facility] MEDICINE [address] [place] [address] Carolann Aguirre MD [address] [place] [address] documented as of this encounter Visit Diagnoses Not on filedocumented in this encounter Additional Health Concerns Assessment Noted Time PHQ-9 Depression Total Score: 0 11/25/19 24 9:31 AM EDT documented as of this encounter Care Teams Quantitative Associate Relationship Specialty Start Date End Date Carolann Aguirre MD [address] [place] [address] PCP - General Family Medicine 10/29/17 documented as of this encounter
--- OUTSIDE RECORDS SUMMARY | 2024-11-26 12:03 | XMS_ITS | Encounter Summary ---
Author Organization [employer] Address 75 [facility] 7t [place] [address] Care Team Providers Care School Principal Name Role Phone Carolann Aguirre MD Primary Care Provide r Reason for Visit * Reason Onset Date Comments Referral 09/28/2024 Encounter Details Date Type Department Care Team ([facility] st Contact Info) Description 09/28/2024 Telephone [facility] MEDICINE 230 [place], [place] [phone] Carolann Aguirre MD 230 [place] [address] Referral Social History Tobacco Use Types Packs/Day [...] 09/28/2024 2:35 PM EDT TC placed to [facility] in regards to message below from pt that they need a new referral placed by PCP. Per the medical secretary receptionist at [facility], the pt does have a confirmed appt on 09/29 and is established with them but still requires an insurance referral per [facility]. The pt would need this referral placed by 2 PM on 09/29 in order to be seen. The PCP can go to the [facility] website to initiate this referral and can often times expedite the process. DATE: 09/29/24 TIME: 2:15 Address: [address], [place] [address] Facility Name: [facility] Type of Specialist: Urologist Pt states they need referral by today if possible, report writer did inform pt of protocol. If any questions you can contact pt at [phone]. (Upper Sorbian Speaker) * Telephone Encounter - Flip Gregorio - 09/28/2024 12:50 PM EDT TC from pt requesting new referral : DATE: 09/29/24 TIME: 2:15 Address: [address], [place] [address] [address] [facility] Type of Specialist: Urologist Pt states they need referral by today if possible, report writer did inform pt of protocol. If any questions you can contact pt at [phone]. (Upper Sorbian Speaker) documented in this encounter Plan of Treatment Upcoming Encounters Date Type Department Care Team (Late st Contact Info) Description 11/30/2024 9:30 AM EDT Office Visit [facility] MEDICINE [address] [place] [phone] Carolann Aguirre MD [address] [place] [address] 12/16/2024 10:00 AM EST Telemedicine [facility] MEDICINE [address] [place] [address] Carolann Aguirre MD [address] [place] [phone] documented as of this encounter Visit Diagnoses Not on filedocumented in this encounter Additional Health Concerns Assessment Noted Time PHQ-9 Depression Total Score: 0 11/25/19 24 9:31 AM EDT documented as of this encounter Care Teams School Principal Relationship Specialty Start Date End Date Carolann Aguirre MD [address] [place] [phone] PCP - General Family Medicine 10/29/17 documented as of this encounter
--- OUTSIDE RECORDS SUMMARY | 2024-11-26 12:03 | XMS_ITS | Encounter Summary ---
Author Organization [employer] Address 75 [facility] 7t [place] [address] Care Team Providers Care Footwear Production Machine Operator Name Role Phone Carolann Aguirre MD Primary Care Provide r Reason for Visit * Reason Onset Date Comments Nurse Triage 10/09/2022 Encounter Details Date Type Department Care Team ([facility] st Contact Info) Description 10/09/[address] [facility] MEDICINE 230 [place], [place] [phone] Carolann Aguirre MD 230 [place] [address] Nurse Triage Social History Tobacco Use Types [...] 10/09/2022 10:43 AM EDT Triage call with [facility] [place] [id number] Pt reports fever since Friday10/07/22, chills at [...] work. Pt is advised to come to [facility] to be seen by provider. Pt [...] accepted this outcome Please contact pt at [phone] (Hungarian) documented in this encounter Plan of Treatment Upcoming Encounters Date Type Department Care Team ([facility] st Contact Info) Description 11/30/2024 9:30 AM EDT Office Visit [facility] MEDICINE [address] [place] [address] Carolann Aguirre MD [address] [place] [address] 12/16/2024 10:[address] [facility] MEDICINE [address] [place] [address] Carolann Aguirre MD [address] [place] [address] documented as of this encounter Visit Diagnoses Not on filedocumented in this encounter Care Teams Footwear Production Machine Operator Relationship Specialty Start Date End Date Carolann Aguirre MD [address] [place] [address] PCP - General Family Medicine 10/29/17 documented as of this encounter
--- OUTSIDE RECORDS SUMMARY | 2024-11-26 12:03 | XMS_ITS | Encounter Summary ---
Author Organization [employer] Address [address] [place] [address] 7t [place] [address] Care Team Providers Care Supervisor Wood Crew Name Role Phone Carolann Aguirre MD Primary Care Provide r Encounter Details Date Type Department Care Team (Latest Contact Info) Description 12/25/2020 Abstract [facility] CONVERSIONS Dental, Provider, DDS Social History [...] 9:30 AM EDT Office Visit [facility] MEDICINE [address] [place] [address] Carolann Aguirre MD [address] [place] [address] 12/16/2024 10:00 AM EST Telemedicine [facility] MEDICINE [address] [place] [address] Carolann Aguirre MD [address] [place] [address] documented as of this encounter Visit Diagnoses Not on filedocumented in this encounter Care Teams Supervisor Wood Crew Relationship Specialty Start Date End Date Carolann Aguirre MD 230 [place] [address] PCP - General Family Medicine 10/29/17 documented as of this encounter
--- OUTSIDE RECORDS SUMMARY | 2024-11-26 12:03 | XMS_ITS | Encounter Summary ---
Author Organization [employer] Address [address] [facility] [address] 7t [place] [address] Care Team Providers Care Database Programmer Name Role Phone Carolann Aguirre MD Primary Care Provide r Encounter Details Date Type Department Care Team ([facility] st Contact Info) Description 09/30/2024 Orders Only [facility] [address] [place] [address] ProviderFlor MD Social History Tobacco Use Types [...] Description 11/30/2024 9:30 AM EDT Office Visit [facility] MEDICINE [address] [place] [phone] Carolann Aguirre MD [address] [place] [address] 12/16/2024 10:00 AM EST Telemedicine [facility] MEDICINE [address] [place] [phone] Carolann Aguirre MD [address] [place] [address] documented as of this encounter Procedures Procedure [...] documented as of this encounter Care Teams Database Programmer Relationship Specialty Start Date End Date Carolann Aguirre MD 230 [place] [address] PCP - General Family Medicine 10/29/17 documented as of this encounter
--- OUTSIDE RECORDS SUMMARY | 2024-11-26 12:03 | XMS_ITS | Encounter Summary ---
Author Organization [employer] Address [address] [facility] [address] 7t [place] [address] Care Team Providers Care Algorithm Developer Name Role Phone Carolann Aguirre MD Primary Care Provide r Encounter Details Date Type Department Care Team (Late st Contact Info) Description 03/19/2023 Orders Only [facility] [address] [place], [place] [phone] Manuel Shaikh MD 230 [place], [place] [phone] Social History Tobacco Use Types Packs/Day Years [...] Description 11/30/2024 9:30 AM EDT Office Visit [facility] MEDICINE [address] [place] [address] Carolann Aguirre MD [address] [place] [address] 12/16/2024 10:00 AM EST Telemedicine [facility] MEDICINE [address] [place] [address] Carolann Aguirre MD [address] [place] [address] documented as of this encounter Visit Diagnoses Not on filedocumented in this encounter Additional Health Concerns Assessment Noted Time PHQ-9 Depression Total Score: 0 11/22/19 23 1:32 PM EDT documented as of this encounter Care Teams Algorithm Developer Relationship Specialty Start Date End Date Carolann Aguirre MD [address] [place] [address] PCP - General Family Medicine 10/29/17 documented as of this encounter
--- OUTSIDE RECORDS SUMMARY | 2024-11-26 12:03 | XMS_ITS | Clinical Summary ---
Author Organization [employer] Address 75 [facility] 7t [place] [address] Care Team Providers Care Food Technician Name Role Phone Carolann Aguirre MD Primary [...] done today I referred patient to a store operations manager Snoring 11/16/2024 Assessment & Plan (11/16/2024 3:51 [...] (11/25/2023 11:01 AM EDT): [facility] for f/u GERD (gastroesophageal reflux disease) Assessment [...] Department Care Team Description 11/23/2024 Patient Outreach [facility] [address] [place] [address] Carolann Aguirre MD Pre-visit Planning (SDOH negative. Tobacco screening negative. ) 11/16/2024 11:15 AM EDT Office Visit [facility] MEDICINE [address] [place] [address] Carolann Aguirre MD Palpitations (Primary Dx); Shortness of breath; Other chest pain; Class 1 obesity due to excess calories without serious comorbidity with body mass index (BMI) of 34.0 to 34.9 in adult; Snoring; Hypersomnia; Dietary counseling; Exercise counseling 11/16/2024 Travel 11/15/[address] [address] Carolann Aguirre MD Chart Prep 11/10/[address] [address] Carolann Aguirre MD Nurse Triage 09/30/2024 Orders Only [facility] [address] [place] [address] Flor Del Angel MD 09/28/2024 Orders Only [facility] MEDICINE [address] [place] [address] Carolann Aguirre MD Nephrolithiasis (Primary Dx) 09/28/[address] [address] Carolann Aguirre MD Referral from Last 3 [...] 9:30 AM EDT Office Visit [facility] MEDICINE [address] [place] [address] Carolann Aguirre MD [address] [place] [address] [phone] 12/16/2024 10:00 AM EST Telemedicine [facility] MEDICINE [address] [place] [address] Carolann Aguirre MD [address] [place], [place] [phone] Health Maintenance Due Date Last Done Comments [...] Procedure Name Priority Date/Time Associated Diagnosis Comments HEMOGLOBIN A1C Routine 11/26/2024 10:23 AM EDT Palpitations CBC WITH AUTO DIFFERENTIAL Routine 11/26/2024 10:23 AM EDT Palpitations AMB REFERRAL TO UROLOGY STAT 10/18/2024 Nephrolithiasis [...] Recently Relevant to Health Maintenance Results * CBC auto differential (11/26/2024 10:23 AM EDT) White Blood Count 5.2 4.8 - 10.8 X10*3/uL [facility] Red Blood Count 4.25 4.20 - 5.50 X10*6/uL [facility] Hemoglobin 13.1 12.0 - 16.0 g/dl [facility] Hematocrit 38.2 37.0 - 47.0 % [facility] Mean Corpuscular Volume 89.9 80.0 - 98.0 fL [facility] Mean Corpuscular Hemoglobin 30.8 27.0 - 33.0 pg [facility] Mean Corpuscular HGB Conc 34.3 31.0 - 35.0 g/dl [facility] Red Cell Distribution Width 12.3 11.0 - 16.0 % [facility] Platelet Count 257 160 - 400 X10*3/uL [facility] Mean Platelet Volume 10.8 9.4 - 12.3 fL [facility] Neutrophils Percent Auto 53.0 45 - 73 % [facility] Imm Gran Pct Auto 0.0 0.0 - 0.4 % [facility] Lymphocytes Percent Auto 39.6 20 - 40 % [facility] Monocytes Percent Auto 6.0 2 - 11 % [facility] Eosinophils Percent Auto 0.6 0 - 4 % [facility] Basophils Percent Auto 0.8 0 - 2 % [facility] NRBC Pct Auto 0.0 0.0 - 0.2 /100WBC [facility] Neutrophils Absolute Auto 2.8 2.0 - 8.3 x10*3/uL [facility] Imm Gran Abs Auto 0.00 0.00 - 0.03 X10*3/uL [facility] Lymphocytes Absolute Auto 2.1 1.2 - 4.9 X10*3/uL [facility] Monocytes Absolute Auto 0.3 0.1 - 1.2 X10*3/uL [facility] Eosinophils Absolute Auto 0.0 0.0 - 0.4 X10*3/uL [facility] Basophils Absolute Auto 0.0 0.0 - 0.2 X10*3/uL [facility] NRBC Abs Auto 0.000 0.0 - 0.012 X10*3/uL [facility] Blood Venous blood specimen / Unknown 11/26/2024 10:23 AM EDT 11/26/2024 11:21 AM EDT us Carolann Haider MD LAB BLOOD ORDERABLES Final Result [facility] [address] [place] [address] [phone] * Hemoglobin A1c (11/26/2024 10:23 AM EDT) Hemoglobin A1c 5.4 <6.0 % [facility] Comment:Hemoglobin A1C Refer ence Range Adults: 4.8 - 6.0 % Non diabetic: < 6.0 % Goal: < 7.0 %Additional Action Suggested: > 8.0 %Note: Hemoglobin A1c results are invalid for patients with abnormal amounts of HbF. Blood transfusions may impact the HbA1c concentration in the patient sample. Estimated Average Glucose 108 mg/dL [facility] Comment:eAG = Estimated ave rage glucose which is %A1C expressed asaverage glucose, using the formula of the Z9K-JiltmjzGenyhuz Glucose study (ADAG), Diabetes Care, Vol.31,#8,Sep. 2007 Blood Venous blood specimen / Unknown 11/26/2024 10:23 AM EDT 11/26/2024 11:21 AM EDT us Carolann Haider MD LAB BLOOD ORDERABLES Final Result Performing Organization Address [facility] Co de Phone Number [facility] [address] [place] [phone] * Referral to Urology (10/18/2024) Result Beatriz Haider MD OUTPATIENT REFERRAL O RDERABLES Final Result * Hepatitis C Antibody with Reflex to HCV, RNA, Quantitative, Real-Time PCR (11/25/2023 11:45 AM EDT) Hepatitis C Antibody Nonreactive Nonreactive [facility] Comment:Antibodies to HCV no t detected; does not exclude early acuteHCV infection. Blood Venous blood specimen / Unknown 11/25/2023 11:45 AM EDT 11/25/2023 1:27 PM EDT us Carolann Haider MD LAB BLOOD ORDERABLES Final Result Performing Organization Address [facility] Co de Phone Number [facility] [address] [place] [phone] * HIV-1/2 Antigen and Antibodies, Fourth Generation, with Reflexes (11/25/2023 11:45 AM EDT) HIV AB/AG Nonreactive Nonreactive [facility] Comment:HIV-1 p24 Ag and/or HIV-1/HIV-2 Ab not detected.A test result that is nonreactive does not exclude thepossibility of exposure to or infection with HIV-1 and/orHIV-2. Nonreactive results in this assay for individualswith prior exposure to HIV-1 and/or HIV-2 may be due toantigen and antibody levels that are below the limit ofdetection of this assay.The [employer] HIV Ag/Ab Combo assay result andsupplemental assay results should be interpreted inconjunction with the patient's clinical presentation,history and other laboratory results. If the results areinconsistent with clinical evidence, additional testing issuggested to confirm the result. Blood Venous blood specimen / Unknown 11/25/2023 11:45 AM EDT 11/25/2023 1:27 PM EDT us Carolann Haider MD LAB BLOOD ORDERABLES Final Result [facility] [address] [place] [phone] * (ABNORMAL) Lipid Panel, Standard (11/25/2023 11:45 AM EDT) Triglycerides 259(H) <150 mg/dL [facility] Comment:Desirable Triglyceri de: less than 150 mg/dLBorderline High Triglyceride 150-199 mg/dLHigh Triglyceride: 200-499 mg/dLVery High Triglyceride: greater than or equal to 5OO mg/dL Cholesterol 249(H) <200 mg/dL [facility] Comment:Desirable Cholestero l: less than 200 mg/dLBorderline High Cholesterol: 200-239 mg/dLHigh Cholesterol: greater than 239 mg/dL LDL Cholesterol Calculated 162(H) <100 mg/dL [facility] Comment:Desirable LDL: less than 100 mg/dLNear Optimal/Above Optimal LDL: 110- 129 mg/dLBorderline High LDL: 130-159 mg/dLHigh LDL: 160-189 mg/dLVery High LDL: greater than or equal to 190 mg/dL HDL Cholesterol 36(L) >40 mg/dL [facility] Comment:Desirable HDL: great er than 40 mg/dL Note: This HDL assay may give artificially low results in patients with liver disease. Blood Venous blood specimen / Unknown 11/25/2023 11:45 AM EDT 11/25/2023 1:27 PM EDT Carolann Haider MD LAB BLOOD ORDERABLES Final Result [facility] [address] [place] [phone] * Colposcopy (01/13/2023 9:42 AM EST) Historical Provider IN CLINIC/BEDSIDE ORDERAB LES Final Result * HM PAP/HPV (01/13/2023 9:40 AM EST) Historical Provider HEALTH MAINTENANCE Final Result * HPV Genotypes 16,18/45 (03/28/2022 12:07 AM EST) HPV 16 RNA NOT DETECTED NOT DETECTED [facility] [employer] HPV 18/45 RNA NOT DETECTED NOT DETECTED [facility] [employer] [facility] Comment: Methodology: Resistor Testing Machine Operator Mediated Amplification Cervical sources are required for HPV testing. If a vaginal source from a patient who has had a total hysterectomy with removal of cervix was submitted, please contact the testing laboratory for alternative testing options. 03/28/2022 12:0 7 AM EST 03/29/2022 5:35 AM EST Ayleen Arellano CNM LAB CYTOLOGY ORDERABLES F inal Result [facility] [address] [place] [address] [facility] [employer] [address], ([address]) [place] [address] from Last 3 Months or Most Recently Relevant to Health Maintenance Insurance [facility] C3 [place] MEDICAID STAND ADULT Care Teams Food Technician Relationship Specialty Start Date End Date Carolann Aguirre MD [address] [place] [phone] PCP - General Family Medicine 10/29/17
[2024-11-26 17:49] LABS: Alanine Aminotransferase 70 U/L (0-31); Albumin Level 4.8 g/dL (3.5-5.0); Alkaline Phosphatase 73 U/L (39-117); Anion Gap 13 (12-20); Aspartate Amino Transferase 36 U/L (5-31); Blood Urea Nitrogen 8 mg/dL (9-16); Calcium 9.2 mg/dL (8.4-10.2); Carbon Dioxide 26 mmol/L (22-29); Chloride 106 mmol/L (96-108); Cholesterol 224 mg/dL (<200); Estimated Glomerular Filt Rate > 60; HDL Cholesterol 37 mg/dL (>40); Potassium 4.5 mmol/L (3.3-5.1); Sodium 140 mmol/L (135-145); Total Protein 7.5 g/dL (6.5-8.0); Triglycerides 112 mg/dL (<150)
== END 2024-11-26 10:14 | disposition home or self-care (01) ==
LOC: HO.HHCL 10:13
PROVIDERS: PCP Internal Medicine; Visit Provider Internal Medicine
DX: R00.2 Palpitations (principal); R06.02 Shortness of breath
CPT/HCPCS: 36415; 80053; 80061; 83036; 84443; 85025